=== PATIENT | male | born 1985 | race African-American/Black ===

== ENCOUNTER 2018-03-25 00:13 | Emergency (ER) | payer OTHER ==
[~2018-03-25] VITALS: Ht 167.6 cm; Wt 72.6 kg
[~2018-03-25 00:13] MED LIST: DIFLUCAN150 M1 PO; DIFLUCAN150 MG PO; FLONASE 0.05%50 MCG NASAL; IBUPROFEN 800800 MG PO; NIZORAL120 ML TP; NOHOMEMEDICATIONS; PENICILLIN VK500 MG PO; PREDNISONE 20 M20 M1 PO; TRAMADOL 50 MG50 MG PO
[2018-03-25 00:19] VITALS: BP 126/82
== END 2018-03-25 00:29 | disposition left against medical advice (07) ==
LOC: M.ERS 00:13
DX: R07.0 Pain in throat (principal); F31.9 Bipolar disorder, unspecified; F17.210 Nicotine dependence, cigarettes, uncomplicated

== ENCOUNTER 2019-03-10 14:31 | Emergency (ER) | payer OTHER ==
[~2019-03-10] VITALS: Ht 167.6 cm; Wt 68.0 kg
[2019-03-10 15:22] LABS: ABSOLUTE EOSINOPHILS 0.1 thou/uL (0.0-0.7); ABSOLUTE LYMPHOCYTES 2.2 thou/uL (0.8-5.3); ABSOLUTE MONOCYTES 0.9 thou/uL (0.0-1.2); ABSOLUTE NEUTROPHILS 5.8 thou/uL (1.6-8.1); BASOPHILS 0.5 %; EOSINOPHILS 1.3 %; HEMOGLOBIN 14.5 gm/dL (14.0-18.0); LYMPHOCYTES 24.3 %; MCH 30.7 pg (26.0-34.0); MCHC 34.4 g/dL (28.0-37.0); MCV 89.2 fL (80.0-100.0); MONOCYTES 10.4 %; MPV 7.8 fl. (7.2-11.1); NUCLEATED RBCS 0 /100WBC; PLATELET COUNT* 240 thou/uL (150-400); POLYS 63.5 %; RBC 4.71 mil/uL (4.50-6.00); RDW-CV 13.8 % (10.5-14.5); WBC 9.1 thou/uL (4.0-11.0)
[2019-03-10 15:30] LABS: CALCIUM 8.9 mg/dL (8.5-10.1); CREATININE 0.8 mg/dL (0.6-1.3); POTASSIUM 3.6 mmol/L (3.5-5.1)
[2019-03-10 15:30] LABS: URINE BILIRUBIN NEGATIVE (Negative); URINE BLOOD NEGATIVE (Negative); URINE CLARITY CLEAR; URINE COLOR YELLOW; URINE GLUCOSE-RANDOM NEGATIVE (Negative); URINE KETONES NEGATIVE (Negative); URINE LEUKOCYTES-REFLEX NEGATIVE (Negative); URINE NITRITE-REFLEX NEGATIVE (Negative); URINE PROTEIN NEGATIVE (Negative); URINE SPECIFIC GRAVITY 1.015 (1.005-1.030); URINE UROBILINOGEN 0.2 E.U./dl (0.2-1.0)
[2019-03-10 15:34] LABS: ALBUMIN 3.3 g/dL (3.4-5.0); TOTAL BILIRUBIN 0.2 mg/dL (<0.1-1.0); TOTAL PROTEIN 6.7 g/dL (6.4-8.2)
[2019-03-10] MEDS ORDERED: BACTRIM DS TAB1 EACH PO (15:40)
[2019-03-10 15:47] VITALS: BP 130/81
== END 2019-03-10 15:47 | disposition home or self-care (01) ==
LOC: M.ERS 14:31
PROVIDERS: Nurse Practitioner Family
DX: L03.012 Cellulitis of left finger (principal); R11.2 Nausea with vomiting, unspecified; R10.9 Unspecified abdominal pain; Z20.2 Contact with and (suspected) exposure to infections with a predominantly sexual mode of transmission; F17.210 Nicotine dependence, cigarettes, uncomplicated; F31.9 Bipolar disorder, unspecified

== ENCOUNTER 2019-06-12 09:59 | Emergency (ER) | payer OTHER ==
[~2019-06-12] VITALS: Ht 167.6 cm; Wt 72.6 kg
[~2019-06-12 09:59] MED LIST changes: +BACTRIM DS TAB1 EACH PO
[2019-06-12] MEDS ORDERED: DIPHENHIST50 MG PO (10:45)
[2019-06-12] MEDS ORDERED: PREDNISONE 10 M10 M1 PO (10:45)
[2019-06-12 10:54] VITALS: BP 116/78
== END 2019-06-12 10:56 ==
LOC: M.ERS 09:59
DX: L25.9 Unspecified contact dermatitis, unspecified cause (principal); F17.210 Nicotine dependence, cigarettes, uncomplicated; F31.9 Bipolar disorder, unspecified